=== PATIENT | female | born 1955 | race Caucasian/White ===

== ENCOUNTER 2017-12-10 09:16 | Outpatient (CLI) | payer OTHER ==
--- NOTE | 2017-12-10 12:29 | ULT ---
LIMITED LEFT BREAST ULTRASOUND: 12/10/2017 PROVIDED CLINICAL HISTORY: Left breast palpable abnormality. COMPARISON: Breast ultrasound, dated 09/10/2016, from the [facility] [place]. FINDINGS: There are scattered simple cysts present in the left breast, in the region of palpable concern, appea ring similar to the prior study. There is no concerning sonographic abnormality evident on the curre nt examination. IMPRESSION: BI-RADS category 2-Benign findings. No concerning mammographic or sonographic abnormality is evident in the region of palpable concern. Negative or benign imaging findings should not preclude further evaluation of a clinically suspicious area. The patient is referred back to her clinician. POS: [facility]
== END 2017-12-10 09:17 | disposition home or self-care (01) ==
LOC: BICMAMMO 09:16
PROVIDERS: ATTEND Family Medicine
DX: N64.4 Mastodynia (principal); Z85.3 Personal history of malignant neoplasm of breast
CPT/HCPCS: G0279